=== PATIENT | female | born 1990 | race Native Hawaiian/Other Pacific Islander ===

== ENCOUNTER 2018-02-27 11:39 | Emergency (ER) | payer OTHER ==
[~2018-02-27] VITALS: Ht 149.9 cm; Wt 55.8 kg
[2018-02-27 11:45] VITALS: TEMP 98.1
[2018-02-27 12:28] LABS: PLATELET COUNT 363 K/uL (152-353)
[2018-02-27 12:54] LABS: POTASSIUM 3.7 mmol/L (3.6-5.2)
[2018-02-27 13:35] VITALS: BP 118/68
== END 2018-02-27 13:35 | disposition home or self-care (01) ==
LOC: ED 11:39
PROVIDERS: Emergency Medicine
DX: J11.1 Influenza due to unidentified influenza virus with other respiratory manifestations (principal); J06.9 Acute upper respiratory infection, unspecified
CPT/HCPCS: 80053; 85027; 87081; 87804; 87880; 99283; J1885